=== PATIENT | male | born 2000 ===

== ENCOUNTER 2023-02-10 13:59 | Outpatient (AMB) | payer BC, SELFPAY ==
--- NOTE | 2023-02-10 14:05 | AM.OFFWIN_ITS ---
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 Patient Tobacco Use Status: Never used Tobacco Allergies No Known Allergies Allergy (Verified 02/10/23 14:09) Do you need a note to return to daycare/school/sports/work: No HPI EST/cut on left wrist(lobby) HPI Details A 22-year-old male patient presents today with laceration of left wrist. He sustained this around 10:30 this morning while at work at a [employer]. He reports it was bleeding earlier and now he has covered it with a bandaid. Last tetanus shot was within the last 10 years. [facility] Social History Patient Tobacco Use Status: Never used Tobacco Review of Systems Const All systems reviewed & are unremarkable except as noted in HPI and below Physical Exam Vital Signs: BMI result Body Mass Index 27.3 Const General: cooperative, healthy appearing, comfortable and no acute distress Resp Effort & Inspection: normal respiratory effort and able to speak in complete sentences Skin Other: Small V shaped laceration left volar aspect of wrist, approx 1cm. No active bleeding. Small flap of skin covering laceration. No surrounding erythema, warmth or skin damage. Extrem General: Yes capillary refill normal and Yes no clubbing, cyanosis or edema Psych Appearance: grossly normal Mental Status: mental status grossly normal Assessment & Plan Assessment & Plan (1) Laceration of left wrist without complication: Code(s): S61.512A - Laceration without foreign body of left wrist, initial encounter Qualifiers: Encounter type: initial encounter Qualified Code(s): S61.512A - Laceration without foreign body of left wrist, initial encounter Plan: Topical skin adhesive applied to small wound on left wrist. Skin cleansed with gauze/normal saline prior to adhesive application. Patient tolerated well. Advised patient to return to the clinic if experiences any increase in bleeding, or any redness, warmth, pain, drainage develops from laceration. He verbalizes understanding and agrees to plan. Coding Level of Care Code Est Pt Level 3 (38648) Diagnoses Laceration of left wrist without complication, initial encounter S61.512A Encounter type: initial encounter
[2023-02-10 14:07] VITALS: BP 116/68; PULSE 78; O2SAT 95; BMI 27.3
== END 2023-02-10 14:45 | disposition home or self-care (01) ==
PROVIDERS: Visit Provider Nurse Practitioner Family
DX: S61.512A Laceration without foreign body of left wrist, initial encounter (principal); Z04.2 Encounter for examination and observation following work accident
CPT/HCPCS: 99213

== ENCOUNTER 2024-03-02 14:28 | Outpatient (AMB) | payer BC, SELFPAY ==
[2024-03-02 14:40] VITALS: BP 128/70; PULSE 60; O2SAT 98; BMI 25.4
--- NOTE | 2024-03-02 14:40 | AM.OFFWIN_ITS ---
Intake Vital Signs 03/02/24 14:40 Height 5 ft 10 in Weight 177 lb BMI 25.4 BP 128/70 Blood Pressure Location Rt brachial Position Sitting Pulse 60 Pulse Source Pulse Oximeter Pulse Oximetry (%) 98 Oxygen Delivery Method Room Air Intake Visit Reasons: EP LT toe painful, swollen Intake Note: Patient here for toe on left foot that is very painful,red and swollen that has been present for about 3 months. Patient Tobacco Use Status: Never used Tobacco Allergies No Known Allergies Allergy (Verified 03/02/24 14:41) Do you need a note to return to daycare/school/sports/work: No HPI HPI Comments History of Present Illness Details Patient is a 23-year-old male complaining of 3 months of left great toe pain. He tells me most recently it has gotten more painful and red around his toenail and is very tender. He says it sometimes weeps fluid and blood, today he tells me it is crusted over with blood. He tells me he has been soaking it in warm water. [facility] Social History Patient Tobacco Use Status: Never used Tobacco Review of Systems Const All systems reviewed & are unremarkable except as noted in HPI and below Physical Exam Vital Signs: Last Vital Signs Pulse 60 03/02/24 14:40 BP 128/70 03/02/24 14:40 Pulse Ox 98 03/02/24 14:40 Oxygen Delivery Method Room Air 03/02/24 14:40 BMI result Body Mass Index 25.4 Const General: cooperative, healthy appearing, comfortable, no acute distress and well developed Orientation/consciousness: patient oriented x3 Limitations: no limitations HEENT Head: Yes normal to inspection Eyes General: appearance normal, both eyes and all related structures Neck Neck: Yes normal visual inspection and Yes full ROM Resp Effort & Inspection: normal respiratory effort and able to speak in complete sentences Skin Other: area of erythema, tenderness on base of left great toenail. no warmth, no ecchymosis, no lesions, no lacerations or abrasions noted Neuro General: patient oriented x3 Extrem General: Yes normal to inspection Assessment & Plan Assessment & Plan (1) Paronychia of great toe: Code(s): L03.039 - Cellulitis of unspecified toe Plan: Unable to drain because there is no fluctuance, it is actually leaking blood but clearly infected, sent an antibiotic. Plan See above Medications: New cefuroxime axetil 500 mg PO Q12H 10 tabs 0RF Coding Level of Care Code Est Pt Level 3 (57107) Diagnoses Paronychia of great toe L03.039
== END 2024-03-02 15:27 | disposition home or self-care (01) ==
PROVIDERS: Visit Provider Physician Assistant
DX: L03.039 Cellulitis of unspecified toe (principal)

== ENCOUNTER → 2024-03-02 14:28 | Outpatient (BNVA) | payer BC, SELFPAY | PROVIDERS: Visit Provider Physician Assistant ==

== ENCOUNTER 2024-03-19 16:19 | Outpatient (REF) | payer BC, SELFPAY ==
[2024-03-20 13:33] LABS: Influenza A PCR NEGATIVE (Negative); Influenza B PCR NEGATIVE (Negative); Resp Syncy Virus RNA Qual PCR NEGATIVE (Negative); SARS COV2 PCR INHOUSE NEGATIVE (Negative)
== END 2024-03-19 16:20 | disposition home or self-care (01) ==
LOC: HO.LAB 16:19
PROVIDERS: Visit Provider Physician Assistant
DX: J01.00 Acute maxillary sinusitis, unspecified (principal); J06.9 Acute upper respiratory infection, unspecified
CPT/HCPCS: 0241U

== ENCOUNTER 2024-03-19 16:19 | Outpatient (AMB) | payer BC, SELFPAY ==
[2024-03-19 16:21] VITALS: BP 118/76; PULSE 103; TEMP 36.8; O2SAT 96; BMI 25.4
--- NOTE | 2024-03-19 16:21 | AM.OFFWIN_ITS ---
Intake Vital Signs 03/19/24 16:21 Height 5 ft 10 in Weight 177 lb BMI 25.4 BP 118/76 Blood Pressure Location Rt brachial Position Sitting Pulse 103 H Pulse Source Pulse Oximeter Temp 98.2 F Temp Source Oral Pulse Oximetry (%) 96 Oxygen Delivery Method Room Air Intake Visit Reasons: EP-?nasal infection Intake Note: Pt presents to the office today for c/o sinus pressure, headache, bloody mucus coming from his nose x3 days. Patient Tobacco Use Status: Never used Tobacco Allergies No Known Allergies Allergy (Verified 03/19/24 16:23) HPI HPI Comments History of Present Illness Details Patient is a 23-year-old male complaining of 3 days of a headache, a dry cough, head congestion, sinus pressure, right ear pain and a bloody nostril on the right side. He denies any fevers, shortness of breath or wheezing. He states he is eating and drinking normally. He has tried ibuprofen for his pain with no relief. He has not tested for COVID, he tells me he had history of childhood asthma but is not on any inhalers currently. He denies any sick contacts. [facility] Social History Patient Tobacco Use Status: Never used Tobacco Review of Systems Const All systems reviewed & are unremarkable except as noted in HPI and below Physical Exam Vital Signs: Last Vital Signs Temp 98.2 F 03/19/24 16:21 Pulse 103 H 03/19/24 16:21 BP 118/76 03/19/24 16:21 Pulse Ox 96 03/19/24 16:21 Oxygen Delivery Method Room Air 03/19/24 16:21 BMI result Body Mass Index 25.4 Const General: cooperative, healthy appearing, comfortable and no acute distress Orientation/consciousness: patient oriented x3 Limitations: no limitations HEENT Head: Yes normal to inspection Ears: hearing grossly normal bilaterally, external ears normal and TM's normal bilaterally General nose exam: Normal external nose present, Normal nares present and No nasal discharge present Face and sinus: Yes normal facial exam and Yes sinus tenderness (Maxillary bilateral and frontal bilateral) Mouth: Normal oral and palatal mucosa present and moist mucous membranes Throat: Yes tonsils normal, Yes uvula midline and Yes posterior oropharynx abnormal (Erythema) Eyes General: appearance normal, both eyes and all related structures Neck Neck: Yes normal visual inspection Resp Effort & Inspection: normal respiratory effort, able to speak in complete sentences, Actively coughing, no respiratory distress, not tachypneic, no tripod positioning and no use of accessory muscles Skin General skin exam: no rashes or lesions noted Neuro General: patient oriented x3 Extrem General: Yes normal to inspection and Yes no clubbing, cyanosis or edema Assessment & Plan Assessment & Plan (1) Sinusitis: Code(s): J32.9 - Chronic sinusitis, unspecified Qualifiers: Sinusitis location: maxillary Chronicity: acute Recurrence: non- recurrent Qualified Code(s): J01.00 - Acute maxillary sinusitis, unspecified Plan: Likely viral, sent flu COVID and RSV testing. Vital signs stable, patient well- appearing, physical exam unremarkable. Recommended patient get a humidifier for the dryness in his ears that is likely what is causing his right nostril to bleed. Also recommended a Neti pot with distilled water and Flonase. Educated patient on the proper use of Flonase. Educated patient that sinus infections are almost always viral but if symptoms persist and get worse after 7-10 days, he should return for antibiotics. Plan See above Orders: Orders SARS-CoV2/FLU/RSV Today J06.9 - Acute upper respiratory infection, unspecified Coding Level of Care Code New Pt Level 3 (69616) Diagnoses Acute non-recurrent maxillary sinusitis J01.00 Sinusitis location: maxillary Chronicity: acute Recurrence: non-recurrent
== END 2024-03-19 16:35 | disposition home or self-care (01) ==
PROVIDERS: Visit Provider Physician Assistant
DX: J01.00 Acute maxillary sinusitis, unspecified (principal)

== ENCOUNTER 2024-06-14 13:38 | Outpatient (AMB) | payer BC, SELFPAY ==
--- OUTSIDE RECORDS SUMMARY | 2024-06-14 13:47 | XMS_ITS | Clinical Summary ---
Author Organization [facility] Address [address] [place] [phone] Phone Care Team Providers Care Solution Lead Name Role Phone Unavailable Primary Care Provider Unavailabl e Allergies Active Allergy Reactions Criticality Noted Date Comments Insect Extract Swelling Low 08/13/2022 Large local reaction- angioedema of hand following yellow jacket sting, with no other systemic symptoms. Medications Auvi-Q 0.3 MG/0.3ML injection syringeIndicati ons:Allergic reaction to insect sting, accidental or unintentional, initial encounter Inject 0.3 mL (0.3 mg total) into the muscle as needed for anaphylaxis (May repeat dose after 15-20 min if sx persist or recurr). 2 each 1 Active Additional Information Patient not taking.Reported on 12/20/2022 Active Problems Problem Noted Date Diagnosed Date BMI 27.0-27.9,adult 03/29/2023 Assessment & Plan (03/29/2023 2:13 PM EST): Your wt is fine. I would not gain any though. Ingrown toenail of both feet 03/29/2023 Assessment & Plan (03/29/2023 2:20 PM EST): Soak both feet twice a day in warm salt water, or use ingrown toenail softener and trim the corners. But you'll probably need me to excise a bit of the left one. Local reaction to insect sting 01/15/2022 Overview (03/29/2023): Large local reaction- angioedema of hand to elbow following yellow jacket sting, with no other systemic symptoms. 07/2022: eval with Dr Denisse FREEDMAN- +Negative skin prick testing but + intradermal to honey bee, wasp, hornet and yellow jackets =estimated 10% risk of systemic rx, avoidance + Epi-pen PRN, AIT as desired but would only reduce risk to 5% so not encouraged- f/up PRN 03/24: allergic to all bees and hornets Hand dermatitis 06/02/2021 Assessment & Plan (06/02/2021 1:37 PM EST): Use the new cream Flexural eczema 04/16/2021 Assessment & Plan (03/29/2023 2:07 PM EST): Use moisturizer like CeraVe, cortisone as needed for itch Assessment & Plan (01/19/2022 7:36 PM EDT): Reinforced use of regular emollient and Triamcinolone PRN Assessment & Plan (06/02/2021 1:36 PM EST): KEEP using the triamcinolone and cerave all the time. Assessment & Plan (04/16/2021 3:49 PM EST): Use triamcinolone and CeraVe moisturizer Chronic pain of both shoulders 01/22/2020 Overview (01/22/2020): Better after PT after a hard tackle. Told might not have 100% of rotation. Assessment & Plan (03/29/2023 2:13 PM EST): Consider PT if the shoulders bother you. Assessment & Plan (04/16/2021 3:50 PM EST): Is basically better now. Assessment & Plan (01/22/2020 1:57 PM EDT): I suggest PT to get to 100%. Defers for now. Migraine without aura and wi th status migrainosus, not intractable 03/01/2018 Overview (03/29/2023): Treated with imitrex - mental imagery and other complementary treatments recommended. ?stress from school. Better now 04/21 03/24: better after stopping chocolate, may still get them if over stressed which is rare. Only three in the last year. Assessment & Plan (03/29/2023 2:11 PM EST): Continue current therapy, call if the migraines become more common. Assessment & Plan (04/16/2021 3:50 PM EST): Are fairly rare now. Assessment & Plan (01/22/2020 1:55 PM EDT): Not as bad now, gets them rarely: 2 only in the last 3 or 4 months, lack of stress has helped. If they recur, please make an appointment, can be virtual for a consult. Assessment & Plan (01/18/2019 10:34 AM EDT): Not as frequent, begins with visual blurring, they last three days, happen twice a month, takes imitrex, dilutes them . Take Migrelief daily. Keep a diary. See me for relaxation therapy. Avoid sodium nitrates, caffeine, chocolate Resolved Problems Problem Noted Date Diagnosed Date Resolved Date BMI (body mass index), pedia tric, 85% to less than 95% for age 1204/16/2021 03/29/2023 Assessment & Plan (04/16/2021 3:54 PM EST): Cut down red meat in your diet, have more fish and fruits, veggies. Immunizations Immunization Administration Dates Next Due COVID-19 Pfizer, alejandro-sucros e, 12+ years 06/02/2021 COVID-19 Vaccine Moderna, se lauri, 12+ years 03/29/2023 DTaP 5 09/12/2006, 4,02/25/2003,01/07,2002 H1N1 05/30/2009,02/26/2009 HPV Vaccine 9 Valent 12/16/2016,12/05/2015 Hep A, ped/adol 12/05/2015,11/14/2014 Hep B, ped/adol 05/24/2003,02/25/2003,2002 Hib (HbOC) 11/22/2003,02/25/2003,01/07/2003 Hib (PRP-T) 2002 IPV 09/12/2006, 4,01/07/2003,10/22 Influenza Split 05/17/2012,02/11/2011,02/10/2010 Influenza, injectable, quadrivalent 02/18/2015 Influenza, injectable, quadr ivalent, preservative free 03/29/2023,04/16/2021,01/22/2020,01/18,04/26/2017,04/13/2016 Influenza, injectable, trivalent 05/30/2009 Influenza, intranasal, quadrivalent 03/14/2013 MMR 09/17/2003 MMRV 09/12/2006 Meningococcal B Trumenba 04/16/2021,01/22/2020 Meningococcal Conj (Menactra) MCV4P 01/18/2019,0 11/14/2014 Pneumococcal Conjugate 02/28/2004,2002,01/07/2003,10/22 Tdap 11/14/2014 Varicella 09/17/2003 Family History Medical History Relation Name Comments ADD / ADHD Brother 1 Neri No Known Problems Brother 2 Masoud Anemia Father Rob Crohn's disease Father Rob Hyperlipidemia Maternal Grandfather Hypertension Maternal Grandfather Asthma Maternal Grandmother Heart defect Maternal Grandmother Heart murmur Maternal Grandmother No Known Problems Mother July Diverticulitis Paternal Grandfather Hypertension Paternal Grandfather Asthma Paternal Grandmother No Known Problems Sister Rhina Relation Name Status Comments Brother 1 Neri Alive Brother 2 Masoud Alive Father Rob Alive Father: Crohn's disease Maternal Grandfather Alive Materna l grandfather: HTN/ high cholesterol Maternal Grandmother Alive Materna l grandmother: asthma/ heart Mother July Alive Mother: Alive a nd well Other Family history of *Heart Disease, Family history of *CVA/Stroke, No family history of *Thrombophilia, Family history of IBS Paternal Grandfather Alive Paterna l grandfather: Hypertension Paternal Grandmother Alive Paterna l grandmother: Asthma Sister Rhina Alive Sister: Alive a nd well Social History Tobacco Use Types Packs/Day Years Used Date Smoking Tobacco: Never Smokeless Tobacco: Never Comments:Never smoker Alcohol Use Standard Drinks/Week Comments Not Currently 0 (1 standard drink = 0.6 oz pur e alcohol) Hunger/Food Answer Date Recorded In the last 12 months, did y ou or your family ever eat less than you felt you should because there wasn't enough money for food? No 03/29/2023 Stable Housing Answer Date Recorded Are you worried that in the next 2 months you may not have stable housing? No 03/29/2023 Transportation Concerns Answer Date Rec orded In the last 12 months, have you or your family ever had to go without healthcare because you didn't have a way to get there? No 03/29/2023 Hazards in Home Answer Date Recorded Think about the place you li ve. Do you have problems with any of the following? Pests (mice or roaches), mold, no/not working smoke detectors, water leaks, no window guards. No 2022 Financing Utilities Answer Date Recorde d In the last 12 months, has t he electric, gas, oil, or water Night Out threatened to shut off your services in your home? No 03/29/2023 Safety at Home Answer Date Recorded Are you or your family worried about feeling saf e in your home? No 03/29/2023 Outside Support Answer Date Recorded Do you feel that you need mo re support from other people or programs to help you care for yourself or your family? No 03/29/2023 Understanding Health Concerns Answer Da te Recorded Do you need help understandi ng your or your child's healthcare needs (diagnosis, medications, plan, etc.)? No 03/29/2023 Financing Health Concerns Answer Date R ecorded In the last 12 months, was t here a time when your child needed to see a doctor or get medications or supplies but could not because of cost? No 03/29/2023 Missing School or Work Answer Date Arnoldo rded Did you or your child miss s chool or work because of a health problem that could have been avoided? No 03/29/2023 Sex and Gender Information Value Date Recorded Sex Assigned at Male 01/22/2020 1:45 PM EDT Legal Sex Male 5:15 PM EDT Gender Identity Male 01/22/2020 1:45 PM EDT Sexual Orientation Straight 01/18/2019 10 :20 AM EDT Last Filed Vital Signs Vital Sign Reading Time Taken Comments Blood Pressure 120/74 03/29/2023 1:35 PM EST Pulse 94 03/29/2023 1:35 PM EST Temperature 36.9 ??C (98.5 ??F) 05/02/2023 11:[address] Respiratory Rate - - Oxygen Saturation - - Inhaled Oxygen Concentration - - Weight 85.3 kg (188 lb) 05/02/2023 11:07 AM EST Height 177.8 cm (5' 10 ) 03/29/2023 1:35 PM EST Body Mass Index 26.98 03/29/2023 1:35 PM EST Plan of Treatment Health Maintenance Due Date Last Done Comments Influenza Vaccines (#1) 2023 03/29/20 23, 04/16/2021, 01/22/2020, Additional history exists COVID-19 Vaccine (2023-2 5 season) 2024 03/29/2023, 06/02/2021, 12/25/2020, Additional history exists DTaP,Tdap,and Td Vaccines (7 - Td or Tdap) 11/14/2024 11/14/2014, 09/12/2006, 02/28/2004, Additional history exists Hepatitis B Vaccines Completed 05/24/2003, 02/25/2003, 2002 HIB Vaccines Completed 11/22/2003, 01/31, 01/07/2003, Additional history exists Pneumococcal Vaccine Completed 02/28/2004, 02/25/2003, 01/07/2003, Additional history exists IPV Vaccines Completed 09/12/2006, 05/03, 01/07/2003, Additional history exists MMR Vaccines Completed 09/12/2006, 09/17/2003 Varicella Vaccines Completed 09/12/2006, 09/17/2003 Hepatitis A Vaccines Completed 12/05/2015, 11/15/19 15 HPV Vaccines Completed 12/16/2016, 12/05/2015 Meningococcal Vaccine Completed 01/18/2019, 015 Men B Vaccine Completed 04/16/2021, 01/22/2020
--- OUTSIDE RECORDS SUMMARY | 2024-06-14 13:47 | XMS_ITS | Clinical Summary ---
Author Organization [facility] Address [address] [place] [address] Phone Care Team Providers Care Job Developer Name Role Phone Physician, No Pcp Primary Care Provider Unavaila ble Allergies Active Allergy Reactions Criticality Noted Date Comments Bee Venom Protein (Honey Bee) 2023 Medications No known medications Encounters Date Type Department Care Team Description 04/10/2024 4:07 PM EST - 04/10/2024 8:20 PM EST Emergency [facility] [address] [place] [address] Ingrown toenail of left foot with infection (Primary Dx) Discharge Disposition: Home or Self Care from Last 3 Months Social History Tobacco Use Types Packs/Day Years Used Date Smoking Tobacco: Never Smokeless Tobacco: Never Tobacco Cessation:Counseling Given: Not Answered Sex and Gender Information Value Date Recorded Sex Assigned at Not on file Legal Sex Male 10:50 AM EST Gender Identity Not on file Sexual Orientation Not on file Obstetrics History Last Filed Vital Signs Vital Sign Reading Time Taken Comments Blood Pressure 152/94 04/10/2024 7:52 PM EST Pulse 55 04/10/2024 7:52 PM EST Temperature 36.6 ??C (97.9 ??F) 04/10/2024 7:52 PM ES T Respiratory Rate 18 04/10/2024 7:52 PM EST Oxygen Saturation 97% 04/10/2024 7:52 PM EST Inhaled Oxygen Concentration - - Weight 84.7 kg (186 lb 12.8 oz) 024 11:55 AM EST Height 157.5 cm (5' 2 ) 04/10/2024 11:5 5 AM EST Body Mass Index 34.17 04/10/2024 11:55 AM EST Plan of Treatment Health Maintenance Due Date Last Done Comments COVID-19 Vaccine ( season) 2024 03/29/2023, 06/02/2021 Influenza Vaccine (#1) 2024 , 04/16/2021, 01/22/2020, Additional history exists Annual Well Child Visit (3-21 years old) 04/10/2024 03/29/2023, 04/16/2021, 01/22/2020, Additional history exists Depression Screening 04/10/2024 HIV Screening 04/10/2024 Hepatitis C Screening 04/10/2024 Social Influencers of Health Screening 04/10/2024 DTaP,Tdap,and Td Vaccines (7 - Td or Tdap) 11/14/2024 11/14/2014, 09/12/2006, 02/28/2004, Additional history exists Hepatitis B Vaccines Completed 05/24/2003, 02/25/2003, 2002 HIB Vaccines Completed 11/22/2003, 01/31, 01/07/2003, Additional history exists Pneumococcal Vaccine: Pediatrics (0 to 5 Years) and At-Risk Patients (6 to 64 Years) Completed 02/28/2004, 02/25/2003, 01/07/2003, Additional history exists IPV Vaccines Completed 09/12/2006, 05/03, 01/07/2003, Additional history exists MMR Vaccines Completed 09/12/2006, 09/17/2003 Varicella Vaccines Completed 09/12/2006, 09/17/2003 Hepatitis A Vaccines Completed 12/05/2015, 11/15/19 15 HPV Vaccines Completed 12/16/2016, 12/05/2015 Meningococcal ACWY Vaccine Completed 01/18/2019, RSV Immunization Patients Under 20 months Aged Out No longer eligible based on patient's age to complete this topic Procedures Procedure Name Priority Date/Time Associated Diagnosis Comments ED NAIL REMOVAL Routine 04/10/2024 7:55 PM EST ID AVULSION NAIL PLATE PARTIAL/COMPLETE SIMPLE SINGLE NAIL PLATE Routine 04/10/2024 7:55 PM EST from Last 3 Months Results * ID AVULSION NAIL PLATE PARTIAL/COMPLETE SIMPLE SINGLE NAIL PLATE, HC TREATMENT/PROCEDURE NAIL (04/10/2024 7:55 PM EST) Narrative Moe Stevenson MD - 04/10/2024 7:55 PM EST SANTOSH Tabor ? 04/10/2024 ??8:05 PM Nail Care Date/Time: 04/10/2024 7:55 PM Performed by: SANTOSH Tabor Authorized by: Moe Stevenson MD ?? Consent: ??Consent obtained: ??Verbal ??Consent given by: ??Patient ??Risks discussed: ??Bleeding, incomplete removal, infection, pain and permanent nail deformity ??Alternatives discussed: ??Delayed treatment and alternative treatment [place] protocol: ??Patient identity confirmed: ??Arm band Pre-procedure details: ??Skin preparation: ??Chlorhexidine Procedure details: ??Location: ??Foot ??Foot location: ??L big toe Anesthesia: ??Anesthesia method: ??Nerve block ??Block needle gauge: ??25 G ??Block anesthetic: ??Lidocaine 2% w/o epi ??Block injection procedure: ??Anatomic landmarks identified and negative aspiration for blood ??Block outcome: ??Anesthesia achieved Nail Removal: ??Nail removed: ??Partial ??Nail side: ??Lateral Ingrown nail: ??Wedge excision of skin: no ?Nail matrix removed or ablated: ??None Post-procedure details: ??Dressing: ??Antibiotic ointment and 4x4 sterile gauze ??Procedure completion: ??Tolerated well, no immediate complications Moe Stevenson MD IN CLINIC/BEDSIDE ORDERABLE S Final Result from Last 3 Months Insurance [facility] Care Teams Job Developer Relationship Specialty Start Date End Date Physician, No Pcp PCP - General 04/10/24
--- OUTSIDE RECORDS SUMMARY | 2024-06-14 13:47 | XMS_ITS | Encounter Summary ---
Author Organization [facility] Address [address] [place] [phone] Phone Care Team Providers Care Disease Case Manager Rn Name Role Phone Gautam Gill MD Primary Care Provider [phone] Encounter Details Date Type Department Care Team (Late st Contact Info) Description 12/16/2016 Conversion Encounter [facility] [address] [place] [address] Social History Tobacco Use Types Packs/Day Years Used Date Smoking Tobacco: Never Comments:Never smoker Sex and Gender Information Value Date Recorded Sex Assigned at Male 01/22/2020 1:45 PM EDT Legal Sex Male 5:15 PM EDT Gender Identity Male 01/22/2020 1:45 PM EDT Sexual Orientation Straight 01/18/2019 10 :20 AM EDT documented as of this encounter Plan of Treatment Not on file documented as of this encounter Visit Diagnoses Not on filedocumented in this encounter Care Teams Disease Case Manager Rn Relationship Specialty Start Date End Date Gautam Gill MD [address] [place] [address] PCP - General 12/10/16 10/03/23 documented as of this encounter
[2024-06-14 13:49] VITALS: BP 126/78; PULSE 78; TEMP 36.6; O2SAT 97; BMI 25.4
--- NOTE | 2024-06-14 13:49 | MHC.OFFWIV ---
"Intake Vital Signs 06/14/24 13:49 Height 5 ft 10 in Weight 177 lb BMI 25.4 BP 126/78 Blood Pressure Location Lt brachial Position Sitting Pulse 78 Pulse Source Pulse Oximeter Temp 97.8 F Temp Source Oral Pulse Oximetry (%) 97 Intake Visit Reasons: EP-lt hand, thumb cut Patient Tobacco Use Status: Never used Tobacco Allergies No Known Allergies Allergy (Verified 06/14/24 13:49) Do you need a note to return to daycare/school/sports/work: No HPI HPI Comments History of Present Illness Details History of Present Illness - The patient is a 23-year-old male presenting with a laceration of the base of the left thumb, sustained an hour before the visit while removing laminate samantha. - The laceration is deep, he can move his thumb as normal. - The wound was initially irrigated with saline by the patient?s mother. - The patient's last tetanus vaccination dates back to when he was 14 years old, indicating a need for an update. Physical Exam General: Cooperative, healthy appearing, comfortable, no acute distress and well developed Orientation: Patient oriented x3 Limitations: No limitations Head: Normal to inspection Ears: Hearing grossly normal bilaterally Nose: Normal external nose present Face and sinus: Normal facial exam Eyes: Appearance normal, both eyes and all related structures Neck: Normal visual inspection and Yes full ROM Respiratory: Normal respiratory effort and able to speak in complete sentences. Skin: No rashes or lesions noted Neuro: Patient oriented x3 Extremities: 1cm curved Laceration at the base of the left thumb. Full ROM on thumb and NVI. Normal to inspection otherwise. [facility] Social History Patient Tobacco Use Status: Never used Tobacco Review of Systems Const All systems reviewed & are unremarkable except as noted in HPI and below Physical Exam Vital Signs: Last Vital Signs Temp 97.8 F 06/14/24 13:49 Pulse 78 06/14/24 13:49 BP 126/78 06/14/24 13:49 Pulse Ox 97 06/14/24 13:49 BMI result Body Mass Index 25.4 Office Procedures Laceration Repair Procedure Location: left base of thumb, 3 sutures w/ 4.0 monofilament EMLA: 2% Lidocaine Text: After discussion of risk and benefits, verbal informed consent was obtained. The area was cleaned, prepped, and draped using sterile technique. The wound was debrided of any foreign material or devitalized tissue. Wound edges were approximated and closed using 4.0 monofilament, 3 sutures. Standard wound dressing was applied. Wound care instructions were given. The patient tolerated the procedure well. The patient was instructed to return for increased redness or red streaking, pain, swelling, pus, fevers, chills, or any other signs or symptoms of infection or worsening. DAC Patient was instructed to return for suture removal in 7-9 days. 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 VIS Given Date VIS Provided VIS Publication Date 06/14/24 Single Vaccine 20 Eligibility Eligibility Date Funding Source Not [facility] Eligible 06/14/24 Private Assessment & Plan Assessment & Plan (1) Laceration of left thumb: Code(s): S61.012A - Laceration without foreign body of left thumb without damage to nail, initial encounter Qualifiers: Encounter type: initial encounter Damage to nail status: without damage Foreign body presence: without foreign body Qualified Code(s): S61.012A - Laceration without foreign body of left thumb without damage to nail, initial encounter Plan: Plan The deep laceration on the base of the patient's left thumb was evaluated and required suturing to ensure proper healing. Given the recent exposure to potentially contaminated material (dirty old samantha), appropriate irrigation and cleaning was performed, followed by 3 suturing using a 4-0 suture. Recognizing the outdated tetanus vaccination status, a Tdap booster was administered to provide coverage against tetanus, in line with his work environment's risk profile. Post-procedural care was discussed, including monitoring for infection and managing initial discomfort at the site. The patient was advised to avoid strenuous use of the hand initially and wound care instructions were given. Return in 7-9 days for removal and sooner if redness, drainage, pain or warmth develops in the area. Patient was informed and verbally consented to the use of an ambient scribe for clinic note documentation during this visit. Orders: Orders TDaP Immunization Today S61.012A - Laceration without foreign body of left thumb without damage to nail, initial encounter AMB Laceration Repair Today S61.012A - Laceration without foreign body of left thumb without damage to nail, initial encounter Coding Level of Care Code New Pt Level 4 (60372) Diagnoses Laceration of left thumb without foreign body without damage to nail, initial encounter S61.012A Encounter type: initial encounter Damage to nail status: without damage Foreign body presence: without foreign body"
== END 2024-06-14 14:54 | disposition home or self-care (01) ==
PROVIDERS: Visit Provider Physician Assistant
DX: S61.012A Laceration without foreign body of left thumb without damage to nail, initial encounter (principal)

== ENCOUNTER → 2024-06-14 13:38 | Outpatient (BNVA) | payer BC, SELFPAY | DX: S61.012A Laceration without foreign body of left thumb without damage to nail, initial encounter (principal); Z23 Encounter for immunization; W45.8XXA Other foreign body or object entering through skin, initial encounter; Y93.9 Activity, unspecified; Y92.9 Unspecified place or not applicable; Y99.9 Unspecified external cause status | CPT/HCPCS: 12001; 90471; 90715 ==

== ENCOUNTER 2024-11-07 11:54 | Outpatient (AMB) | payer BC, SELFPAY ==
--- NOTE | 2024-11-07 12:01 | MHC.OFFWIV ---
Intake Vital Signs 11/07/24 12:02 Height 5 ft 10 in Weight 196 lb BMI 28.1 BP 114/70 Blood Pressure Location Lt brachial Position Sitting Pulse 72 Pulse Source Pulse Oximeter Temp 98.3 F Temp Source Oral Pulse Oximetry (%) 97 Oxygen Delivery Method Room Air Intake Visit Reasons: EP RT Shoulder not WC Intake Note: presents with right shoulder pain after lifting heavy and hearing a pop this morning Patient Tobacco Use Status: Never used Tobacco Allergies No Known Allergies Allergy (Verified 11/07/24 12:03) Do you need a note to return to daycare/school/sports/work: No HPI HPI Comments History of Present Illness Details History - The patient is a 24-year-old male presenting with right shoulder pain following lifting a heavy object this morning. - The patient reports lifting a heavy steel beam, after which he experienced a popping sensation in the shoulder. - The pain was not immediate but developed a few minutes after the incident. - The patient has a history of similar pain in the left shoulder, described as stingers, but notes this pain is more intense. - No medication was taken initially; the patient attempted rest as an intervention. - The patient is currently without a primary care physician and is in the process of finding one. Physical Exam General: Cooperative, healthy appearing, comfortable, no acute distress and well developed Orientation: Patient oriented x3 Limitations: Painful movement in the left shoulder, especially when lifting or extending the arm Head: Normal to inspection Ears: Hearing grossly normal bilaterally Nose: Normal External nose present Face and sinus: Normal facial exam Mouth: normal, moist oral mucosa Eyes: Appearance normal, both eyes and all related structures Neck: Normal visual inspection and Yes full ROM Respiratory: Normal respiratory effort and able to speak in complete sentences. Skin: no rashes or lesions noted Neuro: Patient oriented x3 Spine: no cervical spine tenderness. Extremities: Pain noted in the right shoulder with abduction; bilateral clavicles are even, no right AC joint tenderness, no pain at biceps insertion, + empty can, + lift off. TTP along right trapezius. Moving all other extremities normally. [facility] Social History Patient Tobacco Use Status: Never used Tobacco Review of Systems Const All systems reviewed & are unremarkable except as noted in HPI and below Physical Exam Vital Signs: Last Vital Signs Temp 98.3 F 11/07/24 12:02 Pulse 72 11/07/24 12:02 BP 114/70 11/07/24 12:02 Pulse Ox 97 11/07/24 12:02 Oxygen Delivery Method Room Air 11/07/24 12:02 BMI result Body Mass Index 28.1 Assessment & Plan Assessment & Plan (1) Right shoulder pain: Code(s): M25.511 - Pain in right shoulder Qualifiers: Chronicity: acute Qualified Code(s): M25.511 - Pain in right shoulder Plan: Patient was informed and verbally consented to the use of an ambient scribe for clinic note documentation during this visit 1. Shoulder Pain - Prescribed meloxicam for pain management, advised to rest the shoulder and use a sling for support. Wean off sling over 1-2 weeks. - Recommended ice or heat application based on comfort, and advised against using other NSAIDs concurrently with meloxicam. - Advised to perform daily range of motion exercises to prevent stiffness and avoid frozen shoulder. - If symptoms persist beyond two weeks, referral to orthopedics was suggested. Medications: New meloxicam do not take other NSAIDS while taking this medication 15 mg PO DAILY PRN 15 tabs 0RF pain, moderate Coding Level of Care Code New Pt Level 3 (46476) Diagnoses Acute pain of right shoulder M25.511 Chronicity: acute
[2024-11-07 12:02] VITALS: BP 114/70; PULSE 72; TEMP 36.8; O2SAT 97; BMI 28.1
--- OUTSIDE RECORDS SUMMARY | 2024-11-07 13:04 | XMS_ITS | Clinical Summary ---
Author Organization [facility] Address [address] [place] [phone] Phone Care Team Providers Care Forest Technician Name Role Phone Physician, No Pcp Primary Care Provider Unavaila ble Allergies Active Allergy Reactions Criticality Noted Date Comments Bee Venom Protein (Honey Bee) 2023 Medications No known medications Social History Tobacco Use Types Packs/Day Years [...] 55 04/10/2024 7:52 PM EST Temperature 36.6 C (97.9 F) 04/10/2024 7:52 PM EST Respiratory Rate 18 04/10/2024 7:52 PM EST [...] COVID-19 Vaccine ( season) 2024 03/29/2023, 06/02/2021 Depression Screening 04/10/2024 HIV Screening 04/10/2024 Hepatitis C Screening 04/10/2024 Social Influencers of Health Screening 04/10/2024 DTaP,Tdap,and Td Vaccines (7 - Td or Tdap) 11/14/2024 11/14/2014, 09/12/2006, 02/28/2004, Additional history exists Influenza Vaccine (#1) 2024 , 04/16/2021, 01/22/2020, Additional history exists Hepatitis B Vaccines Completed 05/24/2003, 02/25/2003, 2002 HIB Vaccines Completed 11/22/2003, 01/31, 01/07/2003, Additional history exists Pneumococcal Vaccine: Pediatrics (0 to 5 Years) and At-Risk Patients (6 to 49 Years) Completed 02/28/2004, 02/25/2003, 01/07/2003, Additional history exists IPV Vaccines Completed 09/12/2006, 05/03, 01/07/2003, Additional history exists MMR Vaccines Completed 09/12/2006, 09/17/2003 Varicella Vaccines Completed 09/12/2006, 09/17/2003 Hepatitis A Vaccines Completed 12/05/2015, 11/15/19 15 HPV Vaccines Completed 12/16/2016, 12/05/2015 Meningococcal ACWY Vaccine Completed 01/18/2019, Meningococcal B Vaccine Completed 04/16/2021, 01/21 RSV Immunization Patients Under 20 months Aged Out No longer eligible based on patient's age to complete this topic Insurance [facility] Care Teams Forest Technician Relationship Specialty Start Date End Date Physician, No Pcp PCP - General 04/10/24
--- OUTSIDE RECORDS SUMMARY | 2024-11-07 13:04 | XMS_ITS | Clinical Summary ---
Author Organization [facility] Address [address] [place] [phone] Phone Care Team Providers Care Vehicle Assembly Inspector Name Role Phone Unavailable Primary Care Provider [...] t he electric, gas, oil, or water [employer] threatened to shut off your services in [...] 94 03/29/2023 1:35 PM EST Temperature 36.9 C (98.5 F) 05/02/2023 11:07 AM EST Respiratory Rate - - Oxygen Saturation - - Inhaled Oxygen Concentration - - Weight 85.3 kg (188 lb) 05/02/2023 11:07 AM EST Height 177.8 cm (5' 10 ) 03/29/2023 1:35 PM EST Body Mass Index 26.98 03/29/2023 1:35 PM EST Plan of Treatment Health Maintenance Due Date Last Done Comments COVID-19 Vaccine (2023-2 5 season) 2024 03/29/2023, 06/02/2021, 12/25/2020, Additional history exists DTaP,Tdap,and Td Vaccines (7 - Td or Tdap) 11/14/2024 11/14/2014, 09/12/2006, 02/28/2004, Additional history exists Influenza Vaccines (#1) 2024 03/29/20 23, 04/16/2021, 01/22/2020, Additional history exists Hepatitis B [...]
== END 2024-11-07 13:08 | disposition home or self-care (01) ==
PROVIDERS: Visit Provider Physician Assistant
DX: M25.511 Pain in right shoulder (principal)